=== PATIENT | male | born 1990 | race Asian ===

== ENCOUNTER 2018-09-06 10:54 | Emergency (ER) | payer OTHER ==
[~2018-09-06] VITALS: Ht 182.9 cm; Wt 90.0 kg
[2018-09-06 13:44] VITALS: BP 133/90
== END 2018-09-06 14:43 | disposition home or self-care (01) ==
LOC: ER 14:28
DX: J06.9 Acute upper respiratory infection, unspecified (principal)
CPT/HCPCS: 71045; 99283